=== PATIENT | female | born 1980 | race Caucasian/White ===

== ENCOUNTER 2017-06-10 08:48 | Outpatient (CLI) | payer MEDICAID ==
--- NOTE | 2017-06-11 16:13 | XRAY Report ---
DATE OF SERVICE: 06/10/2017 FOUR-VIEW RIGHT WRIST: 06/10/2017 CLINICAL INDICATION: Pain. FINDINGS: AP, lateral, oblique, scaphoid views of the right wrist demonstrate no evidence of acute f racture or dislocation. The joint spaces are preserved. No radiopaque foreign body is seen in the soft tiss ues. IMPRESSION: No evidence of fracture. TD: 06/10/2017 10:42
--- NOTE | 2017-06-11 16:13 | XRAY Report ---
DATE OF SERVICE: 06/09/2017 TWO-VIEW RIGHT FOREARM: 06/10/2017 CLINICAL INDICATION: Pain. FINDINGS: Frontal and lateral views of the right forearm demonstrate no evidence of fracture. No fo reign body is seen in the soft tissues. IMPRESSION: No evidence of forearm fracture. TD: 06/10/2017 10:30
== END 2017-06-10 08:49 | disposition home or self-care (01) ==
LOC: DI.S 08:48
PROVIDERS: ATTEND Nurse Practitioner Family
DX: M25.531 Pain in right wrist (principal)

== ENCOUNTER 2017-06-11 08:00 | Outpatient (CLI) | payer MEDICAID ==
[2017-06-11 18:50] LABS: BASOPHILS % (AUTO) 0.3 %; EOSINOPHILS % (AUTO) 0.6 %; HGB - HEMOGLOBIN 12.4 g/dL (12.0-16.0); LYMPHOCYTES # (AUTO) 2.7 10^3/uL (1.5-3.5); MEAN CORPUSCULAR HEMOGLOBIN 33.8 pg (27.0-31.0); MEAN CORPUSCULAR HGB CONC 33.5 g/dL (32.0-36.0); MEAN CORPUSCULAR VOLUME 100.6 fL (81.0-99.0); MEAN PLATELET VOLUME 7.2 fL (7.9-10.8); MONOCYTES # (AUTO) 0.5 10^3/uL (0.0-1.0); MONOCYTES % (AUTO) 7.1 %; NEUTROPHILS # (AUTO) 3.7 10^3/uL (1.5-6.6); RED BLOOD COUNT 3.67 10^6/uL (4.20-5.40); RED CELL DISTRIBUTION WIDTH 12.3 % (12.0-15.0); UNCORRECTED WHITE BLOOD COUNT 6.9 x10^3/uL; WHITE BLOOD COUNT 6.9 x10^3/uL (4.8-10.8)
[2017-06-11 19:02] LABS: ALBUMIN/GLOBULIN RATIO 1.4 (1.0-2.2); BILIRUBIN,TOTAL 0.8 mg/dL (0.2-1.0); BUN - BLOOD UREA NITROGEN 11 mg/dL (6-20); CALCIUM 9.2 mg/dL (8.5-10.3); CARBON DIOXIDE - CO2 24 mmol/L (21-32); CHLORIDE 94 mmol/L (101-111); CREATININE 0.6 mg/dL (0.4-1.0); GFR - MDRD 113 (>89); GLUCOSE 93 mg/dL (70-100); POTASSIUM 3.5 mmol/L (3.5-5.0); SODIUM 128 mmol/L (135-145); URIC ACID 3.7 mg/dL (2.6-7.2)
== END 2017-06-11 08:01 ==
LOC: LAB.F 08:00
PROVIDERS: ATTEND Nurse Practitioner Family
DX: M79.673 Pain in unspecified foot (principal)
CPT/HCPCS: 36415; 80053; 84443; 84550; 85025

== ENCOUNTER 2017-07-02 16:48 | Outpatient (CLI) | payer MEDICAID ==
--- NOTE | 2017-07-03 10:34 | MRI Report ---
EXAM: RIGHT WRIST MRI WITHOUT CONTRAST EXAM DATE: 07/02/2017 05:41 PM. CLINICAL HISTORY: Right wrist pain and swelling after fall. COMPARISON: Right wrist radiography from 06/10/2017. TECHNIQUE: Multiplanar, multisequence T1-weighted and fluid-sensitive sequences of the wrist without contrast. Other: None. FINDINGS: Bones: Patchy marrow edema at the distal radial metaphysis and the volar and dorsal aspects of the di stal radial epiphysis. There is questionable cortical disruption at the dorsal aspect of the distal r adial metaphysis. No bone lesions. Cartilage: The articular cartilage is unremarkable. The triangular fibrocartilage complex is unremark able. Ligaments: Slight T2-hyperintense signal at the membranous and dorsal aspects of the scapholunate lig ament suggestive of sprain. There is a 4 x 2 x 2 mm ganglion dorsal to the dorsal aspect of the scaph olunate ligament. The lunotriquetral ligament is intact. Sprain of the dorsal intercarpal ligament. T he other visualized intrinsic, extrinsic and collateral ligaments are unremarkable. Tendons: The extensor compartment I through and flexor tendons are unremarkable. Musculature: No edema or fatty atrophy. Other: The contents of the carpal tunnel, including the median nerve, are unremarkable. Guyons canal is unremarkable. There is an approximately 1.1 x 0.3 x 1 cm ganglion volar to the radial styloid. No joint effusions. The subcutaneous tissues are unremarkable. IMPRESSION: 1. Patchy marrow edema at the distal radius suggestive of at least bone contusion/trabecular microfra cture injury. There is questionable cortical disruption at the dorsal aspect of the distal radial met aphysis which may represent a nondisplaced cortical fracture. 2. Scapholunate ligament and dorsal intercarpal ligament sprain. 3. Small ganglion dorsal to the dorsal aspect of the scapholunate ligament. 4. A 1.1 x 0.3 x 1 m ganglion volar to the radial styloid. [facility] MUSCULOSKELETAL RADIOLOGY SECTION Referring Provider Line: [phone] SITE ID: [id number]
== END 2017-07-02 16:49 | disposition home or self-care (01) ==
LOC: DI 16:48
PROVIDERS: ATTEND Nurse Practitioner Family
DX: S63.8X1A Sprain of other part of right wrist and hand, initial encounter (principal); M67.431 Ganglion, right wrist

== ENCOUNTER 2024-02-08 18:51 | Outpatient (CLI) | payer MEDICAID | END 2024-02-08 18:52 | disposition critical access hospital (66) | LOC: EMS 18:51 | DX: R41.82 Altered mental status, unspecified (principal); R45.89 Other symptoms and signs involving emotional state; R45.1 Restlessness and agitation; F10.90 Alcohol use, unspecified, uncomplicated; S70.211A Abrasion, right hip, initial encounter; X58.XXXA Exposure to other specified factors, initial encounter; Y92.008 Other place in unspecified non-institutional (private) residence as the place of occurrence of the external cause | CPT/HCPCS: A0425; A0427; A0999 ==

== ENCOUNTER 2024-02-08 19:22 | Emergency (ER) | payer MEDICAID ==
--- NOTE | 2024-02-08 19:31 | ED Physician Documentation ---
History of Present Illness - Stated complaint Stated Complaint: AMS, ETOH - Chief complaint Chief Complaint: Trauma Hd/Nk - History obtained from History obtained from: EMS - Additonal information Additional information: BIBA. HPI is from EMS. Patient AMS is to an extent that she cannot contribute any meaningful information to HPI/ROS. Per EMS, patient was found lying on the gravel driveway in front of her home where she lives with her mother. It was the mother who noticed patient was not in the house and, upon going to check on patient, found her lying on the gravel driveway. Patient's baseline mental status is reportedly AAO x 3, but patient is only oriented x 1 on EMSs evaluation. 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 Per EMS, patient does not take any medications and no known drug allergies (per their conversation with patient's mother). On my attempts at HPI/ROS, patient gives no meaningful nor appropriate answers to any of my questions (asked if she hurts anywhere, she says "sorry"; asked if she knows where she is, she starts crying; asked what happened tonight, she again says "I'm sorry" and then starts crying). Review of Systems Unable to obtain: AMS PD PAST MEDICAL HISTORY - Past Medical History Past Medical History: Yes HEENT: Other Other Past Medical History: throat ca - Past Surgical History Past Surgical History: Yes - Present Medications Home Medications: Ambulatory Orders Medication Instructions Recorded Confirmed Home Medications Unobtainable 02/09/24 02/09/24 [HOME MEDICATIONS UNOBTAINABLE] - Allergies Allergies/Adverse Reactions: Allergies Allergy/AdvReac Type Severity Reaction Status Date / Time Unable to Assess Allergy Verified 02/08/24 19:34 - Social History Does the pt smoke?: No Smoking Status: Never smoker - POLST Patient has POLST: No PD ED PE NORMAL - Vitals Vital signs reviewed: Yes - General General: Well developed/nourished, Other (tearful, anxious, fleeting eye contact. awake, alert, does not answer any orientation questions on my HPI) - HEENT HEENT: Atraumatic, PERRL, EOMI, Moist mucous membranes, Other (horizontal nystagmus in either direction (by obersvation as she looks around room; not following commands)) - Cardiac Cardiac: RRR, No murmur - Respiratory Respiratory: No respiratory distress, Clear bilaterally - Abdomen Abdomen: Soft, Other (TTP right abdomen with ecchymosis RUQ, RLQ, suprapubic) - Back Back: No spinal TTP - Extremities Extremities: No tenderness to palpate, Normal ROM s pain - Neuro Eye Opening: Spontaneous Motor: Localizes to Pain Verbal: Inappropriate GCS Score: 12 PD ED PE EXPANDED - Extremities Extremities: Other (scattered BLE echymoses without bony deformity nor TTP) Results - Vitals Vitals: Vital Signs - 24 hr 02/08/24 02/08/24 02/08/24 19:25 19:29 19:59 Temperature 36.2 C L Heart Rate 100 99 80 Respiratory 20 24 16 Rate Blood Pressure 147/97 H 126/106 H 128/94 H O2 Saturation 99 98 97 If not protocol : Oxygen Flow, liters/minute 02/08/24 02/08/24 02/08/24 20:29 20:30 21:00 Temperature Heart Rate 83 84 84 Respiratory 16 16 Rate Blood Pressure 111/87 H 109/99 H O2 Saturation 98 100 If not protocol : Oxygen Flow, liters/minute 02/08/24 02/08/24 02/08/24 21:30 22:00 23:00 Temperature Heart Rate 87 82 64 Respiratory 16 16 16 Rate Blood Pressure 130/109 H 110/85 H 87/63 L O2 Saturation 100 100 100 If not protocol 4 : Oxygen Flow, liters/minute 02/08/24 02/09/24 02/09/24 23:36 01:36 03:00 Temperature Heart Rate 66 72 80 Respiratory 16 16 16 Rate Blood Pressure 90/65 91/62 104/80 O2 Saturation 100 100 97 If not protocol 4 4 : Oxygen Flow, liters/minute 02/09/24 02/09/24 02/09/24 05:00 06:53 08:53 Temperature 36.0 C L Heart Rate 84 88 88 Respiratory 16 16 16 Rate Blood Pressure 100/78 102/65 86/58 L O2 Saturation 100 97 100 If not protocol : Oxygen Flow, liters/minute 02/09/24 02/09/24 10:00 10:53 Temperature 35.9 C L 35.9 C L Heart Rate 74 92 Respiratory 16 15 Rate Blood Pressure 84/54 L 82/60 L O2 Saturation 99 100 If not protocol : Oxygen Flow, liters/minute Oxygen O2 Source Room air - Labs Labs: Laboratory Tests 02/08/24 02/08/24 02/08/24 19:34 19:34 21:15 WBC 4.4 L RBC 3.82 L Hgb 13.6 Hct 40.0 MCV 104.7 H MCH 35.6 H MCHC 34.0 RDW 12.1 Plt Count 186 MPV 8.6 Neut # (Auto) 1.6 Lymph # (Auto) 2.3 [place] # (Auto) 0.4 Eos # (Auto) 0.0 Baso # (Auto) 0.0 Absolute Nucleated RBC 0.00 Nucleated RBC % 0.0 Sodium 140 Potassium 3.6 Chloride 104 Carbon Dioxide 22 Anion Gap 14.0 H BUN 8 Creatinine 0.5 L Estimated GFR (MDRD) 135 Glucose 97 Calcium 9.5 Total Bilirubin 0.7 AST 236 H ALT 111 H Alkaline Phosphatase 93 Total Protein 7.4 Albumin 4.3 Globulin 3.1 Albumin/Globulin Ratio 1.4 Lipase 37 Urine Color LT. YELLOW Urine Clarity CLEAR Urine pH 6.0 Ur Specific Thayer <=1.005 Urine Protein NEGATIVE Urine Glucose (UA) NEGATIVE Urine Ketones NEGATIVE Urine Occult Blood TRACE-INTA Urine Nitrite NEGATIVE Urine Bilirubin NEGATIVE Urine Urobilinogen 0.2 (NORMAL) Ur Leukocyte Esterase NEGATIVE Ur Microscopic Review NOT INDICATED Urine Culture Comments NOT INDICATED Urine HCG, Qual NEGATIVE Urine Opiates Screen NEGATIVE Ur Buprenorphine Scrn NEGATIVE Ur Oxycodone Screen NEGATIVE Urine Methadone Screen NEGATIVE Ur Barbiturates Screen NEGATIVE Ur Tricyclics Screen NEGATIVE Ur Phencyclidine Scrn NEGATIVE Ur Amphetamine Screen NEGATIVE U Methamphetamines Scrn NEGATIVE U Benzodiazepines Scrn NEGATIVE Urine Cocaine Screen NEGATIVE U Cannabinoids Screen NEGATIVE Ur Drug Screen Comment CUTOFF CONC BELOW: Ethyl Alcohol 590.9 H* - Rads (name of study) CTH Relevant Findings:: Prelim report reviewed, See rad report CT cervical spine Relevant Findings:: Prelim report reviewed, See rad report CT chest with IV contrast Relevant Findings:: Prelim report reviewed, See rad report CT A/P with IV contrast Relevant Findings:: Prelim report reviewed, See rad report PD Medical Decision Making - ED course Complexity details: reviewed results, re-evaluated patient, considered differential, d/w patient ED course: No previous records on this patient in [facility] nor when I search [facility] records. Unremarkable CBC (mild leukopenia noted). ER abdominal panel is notable for mildly elevated AST and ALT but otherwise normal LFTs and normal lipase. Urine hCG negative, unremarkable urinalysis. Negative urine drug screen. The serum ethanol level is markedly elevated (590.9). No concerning nor diagnostic findings on CT head, CT cervical spine, CT chest (with IV contrast), CT abdomen pelvis (with IV contrast). She was 2mg aliquots of lorazepam throughout ED stay on my shift for both anxiolysis and, later in stay, for tremulousness which is likely due to alcohol withdrawal. She is given a total of 8 mg of lorazepam during my shift. During my shift, she did exhibit slowly increasing level of interaction and orientation, but at the end of my shift, she is still making some odd statements that indicate she is not entirely oriented x 3 nor to situation. For example, she is asking if she drove here and if her car is here. Care of this patient is turned over to the oncoming ED physician (Dr. Roberts) at the end of my shift. Departure - Departure Disposition: 01 Home, Self Care Clinical Impression: Alcohol intoxication, AMS (altered mental status) Condition: Stable Instructions: ED Alcohol Intoxication Comments: You were seen for delirium related to his severe alcohol intoxication, your blood alcohol was 590. We have offered social work consultation for consideration for detox which you have declined but I would still encourage you to seek outpatient detoxification options. Return for new or worsening symptoms. Do not drink alcohol or drive today. Never drink and drive. Forms: PCP List Discharge Date/Time: 02/09/24 11:00
[2024-02-08 19:39] LABS: BASOPHILS % (AUTO) 0.9 %; EOSINOPHILS % (AUTO) 0.7 %; HGB - HEMOGLOBIN 13.6 g/dL (12.0-16.0); LYMPHOCYTES # (AUTO) 2.3 10^3/uL (1.5-3.5); LYMPHOCYTES % (AUTO) 52.6 %; MEAN CORPUSCULAR HEMOGLOBIN 35.6 pg (27.0-31.0); MEAN CORPUSCULAR VOLUME 104.7 fL (81.0-99.0); MEAN PLATELET VOLUME 8.6 fL (7.9-10.8); MONOCYTES # (AUTO) 0.4 10^3/uL (0.0-1.0); MONOCYTES % (AUTO) 9.9 %; NEUTROPHILS # (AUTO) 1.6 10^3/uL (1.5-6.6); NEUTROPHILS % (AUTO) 35.7 %; PLT - PLATELET COUNT 186 10^3/uL (130-450); RED BLOOD COUNT 3.82 10^6/uL (4.20-5.40); RED CELL DISTRIBUTION WIDTH 12.1 % (12.0-15.0); WHITE BLOOD COUNT 4.4 x10^3/uL (4.8-10.8)
[2024-02-08] MEDS: LORazepam 2 MG/ML VIAL IVP STA ×2 (19:45→22:08)
[2024-02-08 19:54] LABS: ALBUMIN 4.3 g/dL (3.2-5.5); ALBUMIN/GLOBULIN RATIO 1.4 (1.0-2.2); BILIRUBIN,TOTAL 0.7 mg/dL (0.2-1.0); CALCIUM 9.5 mg/dL (8.5-10.3); CREATININE 0.5 mg/dL (0.6-1.3); POTASSIUM 3.6 mmol/L (3.5-4.5); TOTAL PROTEIN 7.4 g/dL (6.4-8.9)
[2024-02-08] MEDS ORDERED: iohexoL-300 100 ML VIAL ONE (20:03)
[2024-02-08 20:09] LABS: ETOH - ETHANOL 590.9 mg/dL
[2024-02-08] MEDS: iohexoL-300 100 ML VIAL IVP ONE (20:42)
--- NOTE | 2024-02-08 20:54 | CT Report ---
PROCEDURE: Head WO INDICATIONS: fall, AMS TECHNIQUE: Noncontrast 4.5 mm thick angled axial sections acquired from the foramen magnum to the vertex. For r adiation dose reduction, the following was used: automated exposure control, adjustment of mA and/or kV according to patient size. COMPARISON: None. FINDINGS: Image quality: Diagnostic. Patient motion is noted. CSF spaces: Basal cisterns are patent. No extra-axial fluid collections. Ventricles are normal in size and shape. Brain: No midline shift. No intracranial masses or hemorrhage. There is volume loss advanced for p atient's age. Zapata-white matter interface is normal. Skull and face: Calvarium and visualized facial bones are intact, without suspicious lesions. Sinuses: Visualized sinuses and mastoids are clear. IMPRESSION: 1. No acute intracranial pathology. 2. Volume loss slightly advanced for patient's age. Reviewed by: Zeus Paige MD on 02/08/2024 8:53 PM PDT Approved by: Zeus Paige MD on 02/08/2024 8:53 PM PDT Station ID: [id number]
--- NOTE | 2024-02-08 21:06 | CT Report ---
PROCEDURE: Cervical Spine WO INDICATIONS: unwitnessed fall, AMS TECHNIQUE: Noncontrast 3 mm thick sections acquired from the skull base to the T4 level. Sagittal and coronal r eformats were then constructed. For radiation dose reduction, the following was used: automated exp osure control, adjustment of mA and/or kV according to patient size. COMPARISON: None. FINDINGS: Image quality: Excellent. Bones: No fractures or dislocations. Visualized superior ribs are intact. Soft tissues: Prevertebral soft tissues are normal in thickness. No paravertebral hematomas. No ap ical pneumothoraces. IMPRESSION: No acute, displaced fracture or traumatic subluxation. Reviewed by: Zeus Paige MD on 02/08/2024 9:04 PM PDT Approved by: Zeus Paige MD on 02/08/2024 9:04 PM PDT Station ID: [id number]
--- NOTE | 2024-02-08 21:10 | CT Report ---
PROCEDURE: Chest W INDICATIONS: unwitnessed fall, AMS CONTRAST: Omni 300 100ml TECHNIQUE: After the administration of intravenous contrast, a CT scan of the chest was performed. Images were recorded and evaluated at appropriate window settings. Reformats: axial MIP of the chest, coronal and sagittal. For radiation dose reduction, the following was used: automated exposure control, adjustme nt of mA and/or kV according to patient size. COMPARISON: None. FINDINGS: Image quality: Diagnostic. Chest wall and lower neck: No thyroid nodule which requires sonographic follow up. No breast mass. No axillary or supraclavicular adenopathy by size. Lungs and pleura: Subtle hazy opacities are seen in posterior aspect of bilateral lung he suggest jake of dependent atelectasis. No pleural effusions. No pneumothorax. No suspicious pulmonary nodules which require follow up. Mediastinum: No mediastinal hematoma. Heart size is normal. No pericardial effusion. No large vessel abnormality. No mediastinal adenopathy by size criteria. Bones: No aggressive osseous abnormality. No displaced rib fractures. No acute vertebral body zeferino hannah fracture or spondylolisthesis. Upper Abdomen: Unremarkable. IMPRESSION: 1. No displaced rib fractures. 2. Dependent atelectasis in posterior aspect of bilateral lung he. No focal infiltrate, pleural e ffusion or pneumothorax. 3. No mediastinal hematoma. No pericardial effusion. Reviewed by: Zeus Paige MD on 02/08/2024 9:08 PM PDT Approved by: Zeus Paige MD on 02/08/2024 9:08 PM PDT Station ID: [id number]
--- NOTE | 2024-02-08 21:17 | CT Report ---
PROCEDURE: Abdomen/Pelvis W INDICATIONS: unwitnessed fall, AMS CONTRAST: Omni 300 100ml TECHNIQUE: After the administration of intravenous contrast, a CT scan of the abdomen and pelvis was performed. Images were recorded and evaluated at appropriate window settings. Reformats: coronal and sagittal. F or radiation dose reduction, the following was used: automated exposure control, adjustment of mA and /or kV according to patient size. COMPARISON: None. FINDINGS: Image quality: Diagnostic. Lower chest: Dependent atelectasis in posterior aspect of bilateral lower lung he are seen. Liver: No solid mass. Gallbladder: No radiopaque stones or wall thickening. Biliary tree: No intrahepatic or extrahepatic dilation, accounting for age. Spleen: No splenomegaly. Pancreas: No pancreatic ductal dilation. Adrenals: No adrenal nodule. Kidneys and ureters: No hydronephrosis. No renal cystic lesion which requires follow up. No solid mas s. Stomach, bowel and peritoneum: No gastric or small bowel dilation. No abnormal wall thickening. No pa thologic free fluid. Lymph nodes: No central or retroperitoneal adenopathy. Vessels: No infrarenal aortic aneurysm. Patent portal vein. PELVIS Reproductive organs: Unremarkable. Bladder: Markedly distended urinary bladder. No abnormal wall thickening, accounting for underdistent ion. Pelvic lymph nodes: No pelvic adenopathy by size criteria. Bones: No aggressive osseous abnormality. Other: No significant ventral or inguinal hernia. IMPRESSION: 1. No acute solid organ injury is seen in abdomen or pelvis. 2. Markedly distended urinary bladder. No gross bladder wall abnormalities. 3. No acute fracture or dislocation is seen in abdomen or pelvis. Reviewed by: Zeus Paige MD on 02/08/2024 9:16 PM PDT Approved by: Zeus Paige MD on 02/08/2024 9:16 PM PDT Station ID: [id number]
[2024-02-08 21:38] LABS: BILIRUBIN,URINE NEGATIVE (NEGATIVE); GLUCOSE, URINE (UA) NEGATIVE (NEGATIVE); KETONES,URINE (UA) NEGATIVE (NEGATIVE); LEUKOCYTE ESTERASE, URINE NEGATIVE (NEGATIVE); NITRITE,URINE NEGATIVE (NEGATIVE); OCCULT BLOOD,URINE TRACE-INTA (NEGATIVE); PROTEIN,URINE NEGATIVE (NEGATIVE); UROBILINOGEN,URINE 0.2 (NORMAL) E.U./dL (NORMAL)
[2024-02-08 21:40] LABS: CLARITY,URINE CLEAR (CLEAR); HCG UR QUAL NEGATIVE
[2024-02-08 21:50] LABS: AMPHETAMINE SCREEN,URINE NEGATIVE (NEGATIVE); BARBITURATE SCREEN,UR NEGATIVE (NEGATIVE); BENZODIAZEPINES SCREEN, URINE NEGATIVE (NEGATIVE); BUPRENORPHINE SCREEN, URINE NEGATIVE (NEGATIVE); COCAINE SCREEN URINE NEGATIVE (NEGATIVE); METHADONE SCREEN, URINE NEGATIVE (NEGATIVE); METHAMPHETAMINES SCREEN, URINE NEGATIVE (NEGATIVE); OPIATE SCREEN, URINE NEGATIVE (NEGATIVE); OXYCODONE SCREEN, URINE NEGATIVE (NEGATIVE); THC CANNABINOID SCREEN, URINE NEGATIVE (NEGATIVE); TRICYCLIC ANTIDEPRESSANT,URINE NEGATIVE (NEGATIVE)
[2024-02-09] MEDS: SODIUM CHLORIDE 0.9% 1,000 ML IV STA ×2 (03:12→04:00)
[2024-02-09] MEDS: LORazepam 2 MG/ML VIAL IVP STA ×2 (04:27→05:21)
[2024-02-09] MEDS: THIAMINE INJ 100 MG in SODIUM CHLORIDE 0.9% 50 ML IV STA (08:13)
--- NOTE | 2024-02-09 09:35 | ED Physician Documentation ---
ED Addendum - Addendum Addendum: 02/09/24 09:[address] Ray at shift change. Briefly this is a 43-year-old woman who came in last night very drunk with a blood alcohol of 590. Because of potential trauma she was thoroughly imaged with a "werner scan." Which did not reveal any traumatic injuries. She was sobered up overnight and at this point she has eaten breakfast and ambulated independently. I have talked to her at the bedside. Speech is very slightly slurred, I asked her if she was interested in talking to the social work or inpatient detox and she declined. She lives with her parents and they will come pick her up reportedly. Disposition discharged home Condition: Stable Diagnoses: 1. Alcohol intoxication 2. Altered mental status resolved
[2024-02-09 11:42] VITALS: BP 82/60; O2SAT 100
== END 2024-02-09 11:00 | disposition home or self-care (01) ==
LOC: EDUNIT# → ED 19:22
DX: F10.121 Alcohol abuse with intoxication delirium (principal); Y90.8 Blood alcohol level of 240 mg/100 ml or more; F41.9 Anxiety disorder, unspecified; R25.1 Tremor, unspecified
CPT/HCPCS: 36415; 70450; 71260; 72125; 74177; 80053; 80306; 81003; 81025; 82077; 83690; 85025; 93005; 96365; 96375; 96376; 99284; J2060; J3411; J7040; Q9967; 81001; 87086

== ENCOUNTER 2024-02-09 18:54 | Outpatient (CLI) | payer MEDICAID | END 2024-02-09 18:55 | disposition critical access hospital (66) | LOC: EMS 18:54 | DX: S01.111A Laceration without foreign body of right eyelid and periocular area, initial encounter (principal); W01.0XXA Fall on same level from slipping, tripping and stumbling without subsequent striking against object, initial encounter; Y93.K1 Activity, walking an animal; Y92.410 Unspecified street and highway as the place of occurrence of the external cause | CPT/HCPCS: A0425; A0429; A0999 ==

== ENCOUNTER 2024-02-09 19:26 | Emergency (ER) | payer MEDICAID ==
[2024-02-09 20:06] LABS: BASOPHILS % (AUTO) 0.6 %; EOSINOPHILS % (AUTO) 0.6 %; HGB - HEMOGLOBIN 12.3 g/dL (12.0-16.0); LYMPHOCYTES # (AUTO) 0.9 10^3/uL (1.5-3.5); LYMPHOCYTES % (AUTO) 23.7 %; MEAN CORPUSCULAR HEMOGLOBIN 35.7 pg (27.0-31.0); MEAN CORPUSCULAR HGB CONC 33.2 g/dL (32.0-36.0); MEAN CORPUSCULAR VOLUME 107.2 fL (81.0-99.0); MEAN PLATELET VOLUME 8.5 fL (7.9-10.8); MONOCYTES # (AUTO) 0.5 10^3/uL (0.0-1.0); MONOCYTES % (AUTO) 12.9 %; NEUTROPHILS # (AUTO) 2.3 10^3/uL (1.5-6.6); NEUTROPHILS % (AUTO) 61.9 %; PLT - PLATELET COUNT 153 10^3/uL (130-450); RED BLOOD COUNT 3.45 10^6/uL (4.20-5.40); RED CELL DISTRIBUTION WIDTH 12.3 % (12.0-15.0); WHITE BLOOD COUNT 3.6 x10^3/uL (4.8-10.8)
[2024-02-09] MEDS ORDERED: LIDOCAINE 1%-EPI 1:100000 20 ML MDV ONE (20:09)
[2024-02-09] MEDS: TETANUS/DIPHTHERIA/PERTUSSIS 0.5 ML SYRINGE IM ONE (20:13)
[2024-02-09] MEDS: SODIUM CHLORIDE 0.9% 1,000 ML IV STA (20:14)
[2024-02-09] MEDS: THIAMINE 100 MG TABLET PO STA (20:14)
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
[2024-02-09] MEDS: LIDOCAINE 1%-EPI 1:100000 10 ML MDV SUBQ STA (20:15)
[2024-02-09 20:31] LABS: ALBUMIN 4.2 g/dL (3.2-5.5); ALBUMIN/GLOBULIN RATIO 1.5 (1.0-2.2); ALKALINE PHOSPHATASE 84 IU/L (42-121); ALT ALANINE AMINOTRANSFERASE 99 IU/L (10-60); AST ASPARTATE AMINOTRANSFERASE 176 IU/L (10-42); BILIRUBIN,TOTAL 0.8 mg/dL (0.2-1.0); BUN - BLOOD UREA NITROGEN 8 mg/dL (6-20); CALCIUM 9.2 mg/dL (8.5-10.3); CARBON DIOXIDE - CO2 25 mmol/L (21-32); CHLORIDE 100 mmol/L (101-111); CREATININE 0.5 mg/dL (0.6-1.3); ETOH - ETHANOL 304.2 mg/dL; GFR - MDRD 135 (>89); GLUCOSE 82 mg/dL (74-104); POTASSIUM 3.4 mmol/L (3.5-4.5); SODIUM 137 mmol/L (135-145)
[2024-02-09 20:32] LABS: ACETAMINOPHEN < 0.1 ug/mL; SALICYLATE < 1.5 mg/dL
[2024-02-09 20:42] LABS: HCG,QUALITATIVE BLOOD NEGATIVE
[2024-02-09 21:02] LABS: AMPHETAMINE SCREEN,URINE NEGATIVE (NEGATIVE); BARBITURATE SCREEN,UR NEGATIVE (NEGATIVE); BENZODIAZEPINES SCREEN, URINE POSITIVE (NEGATIVE); BUPRENORPHINE SCREEN, URINE NEGATIVE (NEGATIVE); COCAINE SCREEN URINE NEGATIVE (NEGATIVE); METHADONE SCREEN, URINE NEGATIVE (NEGATIVE); METHAMPHETAMINES SCREEN, URINE NEGATIVE (NEGATIVE); OPIATE SCREEN, URINE NEGATIVE (NEGATIVE); OXYCODONE SCREEN, URINE NEGATIVE (NEGATIVE); THC CANNABINOID SCREEN, URINE NEGATIVE (NEGATIVE); TRICYCLIC ANTIDEPRESSANT,URINE NEGATIVE (NEGATIVE)
--- NOTE | 2024-02-09 21:16 | CT Report ---
PROCEDURE: Head WO INDICATIONS: trauma TECHNIQUE: Noncontrast 4.5 mm thick angled axial sections acquired from the foramen magnum to the vertex. For r adiation dose reduction, the following was used: automated exposure control, adjustment of mA and/or kV according to patient size. COMPARISON: 02/08/2024 FINDINGS: Image quality: Diagnostic CSF spaces: Basal cisterns are patent. Lateral ventricles are symmetric. Volume: Mild volume loss, greater than expected for age Brain: No acute hemorrhage or gross loss of sanabria-white differentiation Craniofacial structures: No significant paranasal sinus opacity IMPRESSION: No acute intracranial abnormality. Mild volume loss is slightly greater than expected for age Reviewed by: Mulugeta Draper MD on 02/09/2024 9:15 PM PDT Approved by: Mulugeta Draper MD on 02/09/2024 9:15 PM PDT Station ID: [id number]
--- NOTE | 2024-02-09 21:18 | CT Report ---
PROCEDURE: Cervical Spine WO INDICATIONS: trauma TECHNIQUE: Noncontrast 3 mm thick sections acquired from the skull base to the T4 level. Sagittal and coronal r eformats were then constructed. For radiation dose reduction, the following was used: automated exp osure control, adjustment of mA and/or kV according to patient size. COMPARISON: 02/08/2024 FINDINGS: Image quality: Diagnostic Bones: There is reversal of the normal cervical lordosis, also seen previously. Trace anterolisthesis of C3 on C4 and C4 on C5, probably degenerative. No traumatic subluxation or acute vertebral body he ight loss. Soft tissues: No evidence for pneumothorax or prevertebral soft tissue swelling. IMPRESSION: No acute displaced fracture or traumatic subluxation. If there is high concern for further derangemen t, consider MRI evaluation. Reviewed by: Mulugeta Draper MD on 02/09/2024 9:17 PM PDT Approved by: Mulugeta Draper MD on 02/09/2024 9:17 PM PDT Station ID: [id number]
[2024-02-09 23:50] VITALS: BP 122/68; O2SAT 98
--- NOTE | 2024-02-11 14:05 | ED Physician Documentation ---
ED Addendum - Addendum Addendum: 02/11/24 14:04 I called on 02/11/24 at 1:58PM to check in and update care plan regarding recent ER visit. Patient states she is doing well with no new concerns. I made a correction to her care plan: her absorbable facial sutures will take too long to absorb on their own (what was available at time), accordingly I have instructed her to have them removed by a healthcare professional in 7 days. She understands and will do so.
== END 2024-02-09 23:48 | disposition home or self-care (01) ==
LOC: EDUNIT# → ED 19:26
DX: S01.81XA Laceration without foreign body of other part of head, initial encounter (principal); W01.0XXA Fall on same level from slipping, tripping and stumbling without subsequent striking against object, initial encounter; Y93.K1 Activity, walking an animal
CPT/HCPCS: 12052; 36415; 70450; 72125; 80053; 80143; 80179; 80306; 82077; 84703; 85025; 87635; 90471; 90715; 93005; 99284; A9270; 99283